=== PATIENT | male | born 1980 | race Two or more races ===

== ENCOUNTER 2025-01-13 14:57 | Emergency (ER) | payer OTHER ==
[~2025-01-13] VITALS: Ht 165.1 cm; Wt 64.9 kg
[2025-01-13 15:58] VITALS: BP 118/71; PULSE 64; RESP 18; TEMP 97.6; O2SAT 96
[2025-01-13] MEDS: KETOROLAC TROMETH 60MG/2ML VIAL IM ONE (16:01)
--- NOTE | 2025-01-13 16:19 | ED.PDOC ---
Musculoskeletal HPI Comments A 44 YEAR OLD MALE PRESENTS TO THE ED WITH COMPLAINT OF RIGHT ELBOW PAIN POST FALL. PATIENT STATES HE WAS SNOWBOARDING AND HE ACCIDENTALLY FELL AND LANDED ON HIS RIGHT ELBOW. PATIENT REPORTS HE IS NOW EXPERIENCING RIGHT ELBOW PAIN AND IS CONCERNED HE MAY HAVE DISLOCATED IN HIS RIGHT ELBOW. PATIENT DENIES FEVER, CHILLS, SHORTNESS OF BREATH, CHEST PAIN, ABDOMINAL PAIN, NAUSEA, VOMITING, HEADACHE, OR OTHER COMPLAINTS. NO OTHER SYMPTOMS OR MODIFYING FACTORS AT THIS TIME. PATIENT IS ALERT, ORIENTED X 4, AND HAS STEADY GAIT. Chief Complaint: Upper Extremity Time Seen by MD: 15:02 Reviewed Notes: Nurses Notes, Medications, Allergies Allergies: Coded Allergies: NO KNOWN ALLERGIES (Unverified , 01/13/25) Home Meds Active Scripts Ibuprofen (Ibuprofen) 800 Mg Tab, 1 TAB PO TID, #30 TAB Prov:DEANDRE KNAPP 01/13/25 Information Source: Patient Mode of Arrival: Ambulatory Location: Right Extremity Location: Elbow Timing: Hours Prehospital treatment: None Severity: Moderate Able to Move Extremity: Yes Bear Weight: Fully Pain: Moderate Mechanism: Blunt Trauma Circumstances: Fall Onset of Symptoms: After Trauma Symptoms: Swelling, Pain DVT Risk Factors: NONE Last Tetanus: Unknown Associated signs and symptoms: Elbow pain Past Medical History PAST MEDICAL HISTORY: Denies Surgical History: Denies all surgeries Family History Family History: Reviewed,noncontributory to illness Social History Smoker: Non-Smoker Alcohol: Denies ETOH Use Drugs: Denies Drug Use Lives In: Home Constitutional: denies: chills, diaphoresis, fatigue, fever, malaise, sweats, weakness, others EENTM: denies: blurred vision, double vision, ear bleeding, ear discharge, ear drainage, ear pain, ear ringing, eye pain, eye redness, hearing loss, mouth pain, mouth swelling, nasal discharge, nose bleeding, nose congestion, nose pain, photophobia, tearing, throat pain, throat swelling, voice changes, others Respiratory: denies: cough, hemoptysis, orthopnea, SOB at rest, shortness of breath, SOB with excertion, stridor, wheezing, others Cardiovascular: denies: chest pain, dizzy spells, diaphoresis, Dyspnea on exertion, edema, irregular heart beat, left arm pain, lightheadedness, palpitations, PND, syncope, others Gastrointestinal: denies: abdomen distended, abdominal pain, blood streaked bowels, constipated, diarrhea, dysphagia, difficulty swallowing, hematemesis, melena, nausea, poor appetite, poor fluid intake, rectal bleeding, rectal pain, vomiting, others Genitourinary: denies: burning, dysuria, flank pain, frequency, hematuria, incontinence, penile discharge, penile sore, pain, testicle pain, testicle sw elling, urgency, others Neurological: denies: dizziness, fainting, headache, left sided numbness, left sided weakness, numbness, paresthesia, pre-existing deficit, right sided numbness, right sided weakness, seizure, speech problems, tingling, tremors, weakness, others Musculoskeletal: reports: joint pain, joint swelling, others (RIGHT ELBOW PAIN); denies: back pain, gout, muscle pain, muscle stiffness, neck pain Integumetry: denies: bruises, change in color, change in hair/nails, dryness, laceration, lesions, lumps, rash, wounds, others Allergic/Immunocompromised: denies: Difficulty Healing, Frequent Infections, Hives, Itching, others Hematologic/Lymphatic: denies: anemia, blood clots, easy bleeding, easy bruisin g, swollen glands, others Endocrine: denies: excessive hunger, excessive sweating, excessive thirst, excessive urination, flushing, intolerance to cold, intolerance to heat, unexplained weight gain, unexplained weight loss, others Psychiatric: denies: anxiety, bipolar disorder, depression, hopeless, panic disorder, schizophrenia, sleepless, suicidal, others All Other Systems: Reviewed and Negative Physical Exam General Appearance: No Apparent Distress, Normal HEENT: Normal ENT Inspection, PERRL/EOMI, Pharynx Normal, TMs Normal Neck: Full Range of Motion, Non-Tender, Normal, Normal Inspection Respiratory: Chest Non-Tender, Lungs Clear, No Accessory Muscle Use, No Respiratory Distress, Normal Breath Sounds Cardiovascular: No Edema, No JVD, No Murmur, No Gallop, Normal Peripheral Pulses, Regular Rate/Rhythm Breast Exam: Deferred Gastrointestinal: No Organomegaly, Non Tender, No Pulsatile Mass, Normal Bowel Sounds, Soft Genitalia: Deferred Pelvic: Deferred Rectal: Deferred Extremities: Decreased range of motion, No calf tenderness, Normal capillary refill, No pedal edema, Swelling (SWELLING AND DEFORMITY OF RIGHT ELBOW NOTED, NO BONY TENDERNESS OR OPEN WOUND NOTED.), Tender (AND DEFORMITY ON RIGHT ELBOW. 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 Was a procedure done?: Yes Sedation Sedation?: No Reduction Indication: Dislocation (RIGHT ELBOW DISLOCATION) Sedation: Other (TORADOL 60MG IM ) Intra-articular anesthetic august: No Post-reduction x-ray show: Reduction, Good Alignment Informed consent obtained: No Risks/benefits/alt described: Yes Notes COUNTER PULLING AND MANIPULATION WAS PERFORMED ON THE PATIENT'S RIGHT ELBOW. A "CLICK" WAS HEARD AND FELT. PATIENT'S RIGHT ELBOW IS NOW IN CORRECT ANATOMICAL POSITION. PATIENT IS ABLE TO MOVE HIS RIGHT ELBOW WITH FULL RANGE OF MOTION. Differential Diagnosis EXT Differential Diagnosis: Fracture, Sprain, Dislocation, Contusion, Strain, Bursitis X-Ray, Labs, Meds, VS Vital Signs Date Time Temp Pulse Resp B/P (MAP) Pulse Ox O2 Delivery O2 Flow Rate FiO2 01/13/25 15:58 97.6 64 18 118/71 (87) 96 97.6 01/13/25 15:58 64 18 96 Room Air 01/13/25 15:21 97.6 64 18 118/71 (87) 96 97.6 Current Medications Medications (Trade) Dose Ordered Sig/[facility] Route Start Time Stop Time Status Last Admin Ketorolac Tromethamine (Toradol Injection) 60 mg ONCE ONCE IM 01/13/25 16:00 01/13/25 16:01 DC 01/13/25 16:01 EXAM: XY R ELBOW 3 VIEW XRAY CLINICAL HISTORY: FALL COMPARISON: None TECHNIQUE: XY R ELBOW 3 VIEW XRAY Findings/Impression: 2 views of the right elbow. Dislocation of the right elbow with exact positioning indeterminate. There is no evidence of an acute fracture, blastic, or lytic lesions. No radiopaque foreign bodies. ATED BY: ZELDA LUNSFORD DO DICTATED DATE/TIME: 01/13/251622 SIGNED BY: ZELDA LUNSFORD DO SIGNED DATE/TIME: 01/13/251622 CC: X-Ray, Labs, Meds, VS Comment EXTERNAL MEDICAL RECORDS REVIEWED: [NONE] INDEPENDENT HISTORIANS: [NONE] SOCIAL DETERMINANTS OF HEALTH: [NONE] LABS ORDERED: NONE REVIEWED AND INTERPRETED RESULTS: NONE IMAGING ORDERED: XR ELBOW RT, XR ELBOW RT POST-REDUCTION: [INTERPRETED BY ME. NO ACUTE FRACTURE. SUCCESSFUL REDUCTION OF RIGHT ELBOW. CORRECT ANATOMICAL PLACEMENT NOTED. PENDING RADIOLOGY REVIEW.] TREATMENTS ORDERED: TORADOL 60MG IM ARM SLING APPLIED TO PATIENT'S RIGHT ARM. POSTERIOR ELBOW SPLINT APPLIED TO PATIENT'S RIGHT ELBOW. PROCEDURES PERFORMED: CLOSED REDUCTION OF RIGHT ELBOW CRITICAL CARE TIME: NONE I HAVE DISCUSSED THE PATIENT WITH THE ATTENDING PHYSICIAN DR. MIRELES AND HE AGREES WITH THE PATIENT'S PLAN OF CARE AND DISPOSITION. BASED ON HISTORY OF PRESENT ILLNESS, AND PHYSICAL EXAM, PATIENT WILL BE DISCHARGED HOME. DISCUSSED PLAN FOR DISCHARGE HOME WITH RX []. MEDICATION WARNINGS GIVEN. SHARED DECISION MAKING: PATIENT INSTRUCTED TO FOLLOW UP WITH PRIMARY CARE PROVIDER IN 1-2 DAYS FOR RE-EVALUATION OF SYMPTOMS. PATIENT VERBALIZES UNDERSTANDING TO RETURN TO ED FOR NEW OR WORSENING SYMPTOMS OR IF FOLLOW UP WITH PCP CANNOT BE OBTAINED. PATIENT FEELS COMFORTABLE GOING HOME AT THIS TIME. ALL QUESTIONS ADDRESSED AT TIME OF DISCHARGE. Images Reviewed?: Images reviewed and evaluated by me Time of 1ST Reevaluation: 16:45 Reevaluation 1ST: Improved Patient Education/Counseling: Diagnosis, Treatment, Need For Follow Up Family Education/Counseling: Diagnosis, Treatment, Need For Follow Up Medical Screening: No EMC Exist At This Time Departure 1 Departure Time of Disposition: 16:46 Impression: Primary Impression: Dislocation of elbow, right, closed Qualified Codes: S53.104A - Unspecified dislocation of right ulnohumeral joint, initial encounter Additional Impression: Status post fall Disposition: 01 HOME / SELF CARE / HOMELESS Condition: Stable Additional Instructions: FOLLOW-UP WITH PCP IN 1 TO 2 DAYS. TAKE MEDICATIONS PRESCRIBED. RETURN TO ED FOR ANY NEW OR WORSENING SYMPTOMS. e-Prescriptions Ibuprofen (Ibuprofen) 800 Mg Tab 1 TAB PO TID, #30 TAB Prov: DEANDRE KNAPP 01/13/25 Discharged With: Self, Relative Critical Care Note Critical Care Time?: No Stability Stability form required: No I personally scribed for DEANDRE KNAPP ([email or web address]) on 01/13/25 at 16:19. Electronically submitted by Matheus Parada ([email or web address]). I personally scribed for DEANDRE KNAPP ([email or web address]) on 01/13/25 at 16:30. Electronically submitted by Matheus Parada ([email or web address]). DEANDRE KNAPP Jan 13, 2025 16:19
--- NOTE | 2025-01-13 16:25 | DVH ---
EXAM: XY R ELBOW 3 VIEW XRAY CLINICAL HISTORY: FALL COMPARISON: None TECHNIQUE: XY R ELBOW 3 VIEW XRAY Findings/Impression: 2 views of the right elbow. Dislocation of the right elbow with exact positioning indeterminate. There is no evidence of an acute fracture, blastic, or lytic lesions. No radiopaque foreign bodies.
[2025-01-13] MEDS ORDERED: IBUP-1456 PO (16:34)
--- NOTE | 2025-01-13 16:35 | DVH ---
EXAM: XY R ELBOW 2V XRAY CLINICAL HISTORY: POST REDUCTION COMPARISON: XY R ELBOW 3 VIEW XRAY on DOS: 01/13/25 TECHNIQUE: XY R ELBOW 2V XRAY Findings/Impression: 2 views of the right elbow. Status post closed reduction of the right elbow. Improved alignment of the ulna; however, the radial head does not appear to articulate with the lateral epicondyle. There is no evidence of an acute fracture, blastic, or lytic lesions. No radiopaque foreign bodies. Moderate soft tissue edema.
== END 2025-01-13 16:51 | disposition home or self-care (01) ==
LOC: ER 15:01
DX: S53.104A Unspecified dislocation of right ulnohumeral joint, initial encounter (principal); V00.311A Fall from snowboard, initial encounter; Y93.89 Activity, other specified; Y92.89 Other specified places as the place of occurrence of the external cause; Y99.8 Other external cause status
CPT/HCPCS: 24600; 73070; 73080; 99284; J1885; 96372